=== PATIENT | female | born 1985 | race Caucasian/White ===

== ENCOUNTER 2017-05-18 18:50 | Inpatient (IN) | payer BC ==
[2017-05-18] MEDS ORDERED: MEPIVACAINE HCL 1% MPF 30 ML SOL INFIL PRN (19:08)
[2017-05-18] MEDS ORDERED: FENTANYL 100MCG/2ML SOL IV PRN (19:08)
[2017-05-18] MEDS ORDERED: LACTATED RINGERS 1,000 ML IV PRN (19:08)
[2017-05-18] MEDS ORDERED: CARBOPROST 250 MCG/ML SOL IM PRN (19:08)
[2017-05-18] MEDS ORDERED: METHYLERGONOVINE MALEATE 0.2 MG/ML SOL IM PRN (19:08)
[2017-05-18] MEDS ORDERED: SODIUM CHLORIDE 0.9% FLUSH 10 ML SOL IV PRN (19:08)
[2017-05-18] MEDS ORDERED: OXYTOCIN 10000 MU/ML SOL IM PRN (19:08)
[2017-05-18 19:29] LABS: BASOPHILS % (AUTO) 1 % (0-3); EOSINOPHILS % (AUTO) 0 % (0-9); HEMATOCRIT 34 % (35-47); MEAN CORPUSCULAR HGB CONC 33.5 gm/dl (32.0-36.0); MEAN CORPUSCULAR VOLUME 84 fL (81-99); MONOCYTES % (AUTO) 5.7 % (0-12); NEUTROPHILS % (AUTO) 79.4 % (37-80)
[2017-05-18] MEDS: SODIUM CHLORIDE 0.9% FLUSH 10 ML SOL IV SCH (20:33)
[2017-05-19] MEDS: SODIUM CHLORIDE 0.9% FLUSH 10 ML SOL IV SCH ×3 (03:52→22:45)
[2017-05-19] MEDS ORDERED: TERBUTALINE SULFATE 1 MG/ML SOL SC PRN (06:36)
[2017-05-19] MEDS ORDERED: OXYTOCIN 10000 MU/ML 20,000 MU in LACTATED RINGERS 1,000 ML IV SCH (06:45)
[2017-05-19] MEDS ORDERED: LACTATED RINGERS 1,000 ML IV SCH ×2 (06:45→10:15)
[2017-05-19] MEDS ORDERED: OXYTOCIN 10000 MU/ML SOL ONE (06:53)
[2017-05-19] MEDS ORDERED: LACTATED RINGERS 1,000 ML ONE (06:53)
[2017-05-19] MEDS: LACTATED RINGERS 1,000 ML IV SCH ×2 (10:00→10:15)
[2017-05-19] MEDS ORDERED: NALOXONE HYDROCHLORIDE 0.4 MG/ML SOL IV PRN (10:11)
[2017-05-19] MEDS ORDERED: EPHEDRINE SULFATE 50 MG/ML SOL IV PRN (10:11)
[2017-05-19] MEDS ORDERED: DIPHENHYDRAMINE 50 MG/ML SOL IV PRN (10:11)
[2017-05-19] MEDS ORDERED: NALBUPHINE HCL 20 MG/ML SOL IV PRN (10:11)
[2017-05-19] MEDS ORDERED: FENTANYL 250 MCG/ 5ML SOL ONE (10:25)
[2017-05-19] MEDS ORDERED: ROPIVACAINE HYDROCHLORIDE 5 MG/ML SOL ONE ×2 (10:26→10:27)
[2017-05-19] MEDS ORDERED: LIDOCAINE HCL 2% MPF SOL ONE (10:26)
[2017-05-19] MEDS ORDERED: BENZOCAINE/MENTHOL 1 SPR TOP PRN (15:06)
[2017-05-19] MEDS ORDERED: FLEET ENEMA PR PRN (15:06)
[2017-05-19] MEDS ORDERED: TEMAZEPAM 15MG 15 MG CAP PO PRN (15:06)
[2017-05-19] MEDS ORDERED: IBUPROFEN 600 MG TAB PO PRN (15:06)
[2017-05-19] MEDS ORDERED: METHYLERGONOVINE MALEATE 0.2 MG TAB PO PRN (15:06)
[2017-05-19] MEDS ORDERED: APAP/HYDROCODONE 325/5 TAB PO PRN (15:06)
[2017-05-19] MEDS ORDERED: WITCH HAZEL 1 EA PAD TOP PRN (15:06)
[2017-05-19] MEDS ORDERED: BISACODYL 10 MG SUP PR PRN (15:06)
[2017-05-19] MEDS: DOCUSATE SODIUM 100 MG SGL PO SCH (21:58)
[2017-05-20] MEDS: SODIUM CHLORIDE 0.9% FLUSH 10 ML SOL IV SCH ×3 (05:27→22:00)
[2017-05-20] MEDS: DOCUSATE SODIUM 100 MG SGL PO SCH ×2 (08:55→22:11)
[2017-05-20 15:08] VITALS: RESP 18
[2017-05-21] MEDS ORDERED: TEMAZEPAM 15MG 15 MG CAP ONE (02:48)
[2017-05-21] MEDS: SODIUM CHLORIDE 0.9% FLUSH 10 ML SOL IV SCH (03:08)
[2017-05-21] MEDS: DOCUSATE SODIUM 100 MG SGL PO SCH (09:21)
[2017-05-21 11:20] VITALS: BP 120/79; PULSE 85; TEMP 97.9; O2SAT 98
== END 2017-05-21 10:55 | disposition home or self-care (01) | DRG 560 ==
LOC: OB 18:50 → OBSVTOIN 18:50
PROVIDERS: ADMIT Family Medicine; ATTEND Family Medicine
PROC: 0U7C7ZZ Dilation of Cervix, Via Natural or Artificial Opening (ICD-10-PCS; 2017-05-18)
PROC: 10D07Z6 Extraction of Products of Conception, Vacuum, Via Natural or Artificial Opening (ICD-10-PCS; principal; 2017-05-19)
PROC: 10907ZC Drainage of Amniotic Fluid, Therapeutic from Products of Conception, Via Natural or Artificial Opening (ICD-10-PCS; 2017-05-19)
PROC: 0KQM0ZZ Repair Perineum Muscle, Open Approach (ICD-10-PCS; 2017-05-19)
DX: O48.0 Post-term pregnancy (principal); O76 Abnormality in fetal heart rate and rhythm complicating labor and delivery; Z3A.41 41 weeks gestation of pregnancy; O70.1 Second degree perineal laceration during delivery; Z37.0 Single live birth
CPT/HCPCS: 36415; 59025; 85018; 85025; J0670; J2590; J2795; J3010; A9270-GY